=== PATIENT | female | born 1940 | race Caucasian/White ===

== ENCOUNTER 2016-04-26 06:55 | Day surgery (SDC) | payer MEDICARE, BC ==
[2016-04-26] MEDS ORDERED: Lactated Ringers 1,000 ML IV SCH (07:00)
[2016-04-26] MEDS ORDERED: Propofol 200 MG/20 ML SDV IV ONE (08:30)
--- NOTE | 2016-04-26 08:39 | PCM.OPNOTE ---
- General Post-Op/Procedure Note Date of Surgery/Procedure: 04/26/16 Operative Procedure(s): c scope Findings: int hemorrhoids Pre Op Diagnosis: heme + stools Post-Op Diagnosis: int hemorrhoids Anesthesia Technique: TIN Primary Surgeon: Deion Serna Anesthesia Provider: Jerry Kat Pathology: none Complications: None Condition: Good Free Text/Narrative:: see dictation
[2016-04-26 13:07] VITALS: BP 115/58
--- NOTE | 2016-04-26 15:48 | OR ---
DATE OF OPERATION: 04/26/2016 SURGEON: Deion Serna MD PROCEDURE PERFORMED: Colonoscopy. PREOPERATIVE DIAGNOSIS: Heme-positive stools. POSTOPERATIVE DIAGNOSIS: Internal hemorrhoids. INDICATIONS FOR PROCEDURE: This is a 75-year-old white female, who was noted on recent exam to have a positive results. She was offered and accepted C-scope. DESCRIPTION OF PROCEDURE: After an excellent IV sedation was administered, digital rectal exam was performed. No marked abnormality was noted. The flexible colonoscope was inserted and advanced to the cecum without difficulty. The following findings were noted. Ascending colon, unremarkable. Transverse colon, unremarkable. Descending colon, unremarkable. Sigmoid and rectum unremarkable. On retroflexion of the scope, there was some evidence of internal hemorrhoids. This is the presumed cause of her bleeding. Colon was deflated. The scope was removed. The patient tolerated the procedure well and was taken to recovery room in good condition. /[id number] /TOD
== END 2016-04-26 10:10 | disposition home or self-care (01) ==
LOC: FB.SDS 06:55
PROVIDERS: ATTEND Surgery
DX: K64.8 Other hemorrhoids (principal); I10 Essential (primary) hypertension; E78.5 Hyperlipidemia, unspecified; K21.9 Gastro-esophageal reflux disease without esophagitis; Z88.1 Allergy status to other antibiotic agents; Z79.899 Other long term (current) drug therapy; Z90.49 Acquired absence of other specified parts of digestive tract; Z98.890 Other specified postprocedural states; Z87.891 Personal history of nicotine dependence
CPT/HCPCS: 00810; 45378; J2704; J7120